=== PATIENT | male | born 1995 ===

== ENCOUNTER 2022-03-15 19:51 | Emergency (ER) | payer OTHER, SELFPAY ==
--- NOTE | ~2022-03-15 | XR_ITS ---
EXAMINATION: XR CHEST CLINICAL INFORMATION: Cough COMPARISON: None TECHNIQUE: Frontal view of the chest was obtained. FINDINGS: No significant abnormality is noted involving the heart, lungs, mediastinum, bony thorax or soft tissues. XR/XR chest 1V IMPRESSION: Unremarkable examination.
[2022-03-15 21:17] VITALS: BP 139/80; PULSE 89; RESP 20; TEMP 38.1; O2SAT 95; BMI 30.5
[2022-03-15] MEDS: Acetaminophen 325 MG TABLET 650 MG PO (21:20)
--- NOTE | 2022-03-15 21:26 | ED.URI ---
HPI - URI/Sore Throat General Chief Complaint: Upper Respiratory Symptoms Stated Complaint: Tested Pos Covid Time Seen by Provider: 03/15/22 21:22 Source: patient Mode of arrival: ambulatory Limitations: no limitations History of Present Illness HPI Narrative: Kimberly segura 2, MD elicited complaint: cough, sore throat and rhinorrhea Onset (ago): day(s) (yesterday ) Consistency: constant Severity: mild Able to tolerate fluids by mouth: Yes Exacerbating factors: nothing Relieving factors: nothing Context: other (two positive COVID tests at home - came here to be sure) Associated symptoms: fever, chills, myalgias, headache, rhinorrhea and sore throat Treatments prior to arrival: none Related Data Allergies Allergy/AdvReac Type Severity Reaction Status Date / Time SEASONAL ALLERGIES Allergy Unknown RUNNY Uncoded 03/15/22 21:16 NOSE,WATERY EYES Review of Systems Review of Systems: Constitutional : positive Fever, positive Chills, positive fatigue, positive Malaise ENT/Mouth : positive sore throat, positive runny nose Eyes: No Discharge Cardiovascular : No Chest Pain, No SOB Respiratory : pos Cough, No Sputum Gastrointestinal : No Nausea, No Vomiting, No Diarrhea Genitourinary : No Dysuria, No Urinary Frequency Musculoskeletal : positive Myalgia Skin : No rash Neuro : No Headache PMFSH Past Medical History Attestation statement: The following information was validated with the patient. Medical History No pertinent past medical history Social History Social History (Updated 03/15/22 @ 21:40 by Daija Darling DO) Patient Tobacco Use Status: Never used Tobacco Substance Use Type: Marijuana Advance Directives: No Advance Directives Information Provided: No Physical Exam Vital Signs: Vital Signs: Last Vital Signs Temp 100.6 F H 03/15/22 21:17 Pulse 89 03/15/22 21:17 Resp 20 03/15/22 21:17 BP 139/80 03/15/22 21:17 Pulse Ox 95 03/15/22 21:17 O2 Del Method 03/15/22 21:17 BMI result Body Mass Index 30.5 Appearance: Alert. Oriented X3. No acute distress. Appears under the influence strong odor of THC Eyes: Pupils equal, round and reactive to light. ENT: Pharynx normal. Neck: Normal inspection. Neck supple. CVS: Normal heart rate and rhythm. Pulses normal. Respiratory: No respiratory distress. Breath sounds normal. Abdomen: Soft and nontender. Skin: Skin warm and dry. Normal skin color. Normal skin turgor. Extremities: No lower extremity edema. No calf ttp Neuro: Oriented X 3. No motor deficit. No sensory deficit. MDM - URI/Sore Throat MDM Narrative Medical decision making narrative: 26 yo male vaccinated x 2 with Moderna here with + COVID tests x 2 at home - mild symptoms, no resp distress, has no qualifying condition - does not want Paxlovid after discussing EAU form. Will obtain swab, give tylenol. CXR. Dispo per results and findings. Anticipate DC home with precautions Lab Data Labs: Lab Results 03/15/22 Range/Units 21:56 COVID-19 (KATYA) Positive A (Negative) COVID-19 Clin Com See Note Discharge Plan Discharge Clinical Impression: COVID-19 Patient Disposition: Home, Self-Care Instructions: COVID-19 (Coronavirus Disease 2019) (ED) Additional Instructions: return to ED for any worsening symptoms or concerns WEAR A MASK, QUARANTINE, PROTECT OTHERS return if you become so short of breath you cannot walk to your bathroom tylenol and motrin for fevers stay hydrated CHEST XRAY OF YOUR LUNGS IS CLEAR NO PNEUMONIA Stand Alone Forms: Work/School Release
[2022-03-15 22:12] LABS: COVID-19 Test Positive (Negative)
== END 2022-03-15 22:35 | disposition home or self-care (01) ==
PROVIDERS: Emergency Provider Emergency Medicine
DX: U07.1 COVID-19 (principal); F12.90 Cannabis use, unspecified, uncomplicated
CPT/HCPCS: 71045; 87635; 99282; 99283

== ENCOUNTER 2022-03-18 03:44 | Emergency (ER) | payer OTHER, SELFPAY ==
[2022-03-18 04:21] VITALS: BP 145/81; PULSE 58; RESP 16; TEMP 36.9; O2SAT 97; BMI 30.5
== END 2022-03-18 06:12 | disposition left against medical advice (07) ==
PROVIDERS: Emergency Provider Emergency Medicine
DX: H92.02 Otalgia, left ear (principal)
CPT/HCPCS: 99281

== ENCOUNTER → 2022-07-31 08:51 | Outpatient (BNVA) | payer MEDICAID, SELFPAY | PROVIDERS: PCP Registered Nurse; Referring Provider Registered Nurse; Visit Provider Surgery | DX: R10.31 Right lower quadrant pain (principal) | CPT/HCPCS: 99202 ==

== ENCOUNTER 2022-08-09 16:39 | Outpatient (REF) | payer MEDICAID, SELFPAY ==
--- NOTE | ~2022-08-09 | CT_ITS ---
EXAMINATION: CT PELVIS WITHOUT CONTRAST CLINICAL INFORMATION: Right lower quadrant pain. COMPARISON: None. TECHNIQUE: Helical scanning was performed with submillimeter collimation through the pelvis. Sagittal and coronal multiplanar 2-D reconstructions were obtained. This CT examination was performed using dose optimization techniques as appropriate, variously including the following: *Automated exposure control *Adjustment of mA and/or kV according to patient size (this includes techniques or standardized protocols for targeted exams where dose is matched to indication/reason for exam; i.e. extremities or head) *Use of iterative reconstruction technique DLP: 527 mGy-cm. FINDINGS: PELVIS: There is scattered stool in the ascending colon and cecum region with normal-appearing appendix. The terminal ileum is nondilated. No inflammatory process seen in the right lower quadrant. There is no free air or free fluid. The bladder is nondistended. OSSEOUS STRUCTURES: No aggressive lytic or sclerotic process seen. CT/CT pelvis wo IV con IMPRESSION: 1. No acute process seen. 2. Mild constipation. Normal appendix.
== END 2022-08-09 16:40 | disposition home or self-care (01) ==
LOC: HO.CT 16:39
PROVIDERS: PCP Registered Nurse; Visit Provider Surgery
DX: R10.31 Right lower quadrant pain (principal)
CPT/HCPCS: 72192

== ENCOUNTER → 2022-08-15 11:20 | Outpatient (BNVA) | payer MEDICAID, SELFPAY | PROVIDERS: PCP Registered Nurse; Referring Provider Registered Nurse; Visit Provider Surgery | DX: R10.31 Right lower quadrant pain (principal) | CPT/HCPCS: 99212 ==

== ENCOUNTER → 2022-11-06 09:43 | Outpatient (BNVA) | payer MEDICAID, SELFPAY | PROVIDERS: PCP Registered Nurse; Visit Provider Surgery | DX: R10.31 Right lower quadrant pain (principal) | CPT/HCPCS: 99202 ==

== ENCOUNTER 2022-12-23 09:15 | Emergency (ER) | payer MEDICAID, SELFPAY ==
[2022-12-23 09:18] VITALS: BP 139/81; PULSE 71; RESP 19; TEMP 36.6; O2SAT 99; BMI 28.7
--- NOTE | 2022-12-23 10:17 | ED_ITS ---
HPI - General Adult General Chief complaint: General Medical Stated complaint: Sore throat/Swollen tonsils? Time Seen by Provider: 12/23/22 10:17 Source: patient Mode of arrival: ambulatory Limitations: no limitations History of Present Illness HPI narrative: Patient is a 27 year old assigned male at with no reported medical history presenting to the emergency department today with a sore throat. Patient states that he has had a sore throat for 4 days, went to an urgent care yesterday where they tested him for strep and mono (both negative) and started him on antibiotics. Patient states that he's concerned because there are white spots in his throat. Patient denies any dizziness, lightheadedness, abdominal pain, nausea, vomiting, fever, chills, blurry vision, double vision, loss of vision, chest pain, difficulty breathing, shortness of breath, back pain, night sweats, pain with urination, increased urinary frequency, increased urinary urgency, blood in his urine or stool, syncope or a near syncopal episode, recent trauma or falls, bowel incontinence, bladder incontinence, bowel retention, bladder retention, or any other complaints at this time. Onset (ago): day(s) (4) Severity: mild Relieving factors: none Exacerbating factors: none Associated symptoms: denies other symptoms Treatments prior to arrival: other (oral antibiotics) Related Data Home Medications Medication Instructions Recorded Confirmed No Known Home Meds 08/15/22 08/15/22 Allergies Allergy/AdvReac Type Severity Reaction Status Date / Time SEASONAL ALLERGIES Allergy Unknown RUNNY Uncoded 12/23/22 09:18 NOSE,WATERY EYES Review of Systems Constitutional: Constitutional: Reports no additional constitutional complaints, Denies chills, Denies fever(s) and Denies night sweats Eyes: Eyes: Reports no additional eye complaints, Denies blurry vision, Denies change in vision, Denies diplopia, Denies eye discharge, Denies loss of vision and Denies eye pain ENT: Denies dizziness and Reports sore throat Comments: white spots in throat Cardiovascular: Cardiovascular: Reports no additional cardiovascular complaints, Denies chest pain, Denies lightheadedness, Denies Loss of Consciousness and Denies dyspnea Respiratory: Respiratory: Reports no additional respiratory complaints and Denies dyspnea Gastrointestinal: Gastrointestinal: Reports no additional gastrointestinal complaints, Denies abdominal pain, Denies melena, Denies hematochezia, Denies change in bowel habits and Denies change in stool character Genitourinary: Genitourinary: Reports no additional male genitourinary complaints, Denies hematuria, Denies oliguria, Denies difficulty urinating, Denies dysuria, Denies urinary frequency, Denies urinary hesitancy, Denies urinary incontinence and Denies urinary urgency Musculoskeletal: Musculoskeletal: Reports no additional musculoskeletal complaints, Denies numbness and Denies tingling Neurologic: Denies dizziness, Denies loss of vision, Denies numbness and Denies tingling Psychiatric: Psychiatric: Reports no additional psychiatric complaints Endocrine: Endocrine: Reports no additional endocrine complaints Hematologic/Lymphatic: Hematologic/Lymphatic: Reports no additional hematologic/lymphatic complaints Allergic/Immunologic: Allergic/Immunologic: Reports no additional allergic/immunologic complaints PMFSH Past Medical History Attestation statement: The following information was validated with the patient. Source: old records reviewed and nursing notes reviewed Medical History No pertinent past medical history Family History Family History Mother Brain cancer Father No problems noted. Social History Social History Household Members: None Housing: Apartment Alcohol intake: current Alcohol intake frequency: holidays/special occasions only Patient Tobacco Use Status: Current someday Tobacco user Tobacco use type: Cigarette Cigarette Packs Per Day: 1 Advance Directives: No Advance Directives Information Provided: No Physical Exam ED Vital Signs: Vital Signs - 24 hr 12/23/22 09:18 Temperature 98 F Pulse Rate 71 Respiratory Rate 19 Blood Pressure 139/81 Pulse Oximetry 99 Oxygen Delivery Method Room Air BMI result Body Mass Index 28.7 Const General: cooperative, no acute distress, alert and awake Nutritional Appearance: well nourished Orientation/consciousness: patient oriented x3 Limitations: no limitations HENMT Head: Yes normal to inspection and Yes atraumatic Ears: hearing grossly normal bilaterally and external ears normal General nose exam: Normal external nose present, no nasal discharge noted and no epistaxis Face and sinus: Yes normal facial exam, No abrasion and No laceration Mouth: Normal oral and palatal mucosa present, no drooling and no muffled voice Throat: Yes posterior oropharynx abnormal (erythema and exudates) Eyes General: appearance normal, both eyes and all related structures Periorbital: periorbital findings normal Eyelids: Yes eyelids normal Conjunctivae: conjunctivae normal Pupils: Equal, round and reactive pupils present EOM: EOMs intact bilaterally Neck Neck: Yes normal visual inspection, Yes full ROM and Yes no lymphadenopathy Chest Chest palpation & inspection: normal inspection of the chest Resp Effort & Inspection: normal respiratory effort and able to speak in complete sentences GI Inspection: Yes normal to inspection Neuro General: patient oriented x3 and moves all extremities Cranial nerves: Yes Equal, round and reactive pupils present Cognition (Neuro): normal cognition Motor exam (neuro): 5/5 motor strength present throughout Sensory Exam: Normal double simultaneous stimulation for sensation Coordination: [id number] test normal Extrem General: Yes normal to inspection, Yes full ROM and Yes capillary refill normal Psych Appearance: grossly normal Mental Status: mental status grossly normal Affect: normal affect Attitude: cooperative Thought process: Normal thought process present Thought content: Normal thought content present Insight: Good insight present (Psych) Medications Administered Discontinued Medications Generic Name Dose Route Start Last Admin Trade Name Emely PRN Reason Stop Dose Admin Dexamethasone Sodium Phosphate 10 mg 12/23/22 10:24 12/23/22 11:05 Dexamethasone Sod Phosphate 10 Mg/Ml Vial PO 12/23/22 10:25 Not Given ONCE ONE Medical Decision Making Medical Decision Making [facility] Narrative: Patient is a 27 year old assigned male at with no reported medical history presenting to the emergency department today with white spots in his throat. Patient's physical exam showed posterior pharynx erythema and exudates. I explained my physical exam findings to the patient. I answered all questions asked by the patient. I stressed the importance of the patient taking his medication as prescribed, including his antibiotics. I stressed the importance of the patient following up with his primary care provider. I stressed the importance of the patient returning to the emergency department immediately if his symptoms were to worsen or if he were to develop any dizziness, shortness of breath, difficulty breathing, chest pain, blurry vision, loss of vision, nausea, vomiting, abdominal pain, fever, chills, back pain, or any other complaints. Patient verbalized agreement and understanding with this treatment plan and discharge. Differential Diagnosis Differential Diagnoses: The differential diagnosis associated with the presentation includes pharyngitis Discharge Plan Discharge Clinical Impression: Pharyngitis Patient Disposition: Home, Self-Care Instructions: Pharyngitis (ED) Additional Instructions: Keep taking the antibiotics previously prescribed. Follow up with your primary care provider. Return to the emergency department immediately if your symptoms worsen or if you develop any dizziness, shortness of breath, difficulty breathing, chest pain, blurry vision, loss of vision, nausea, vomiting, abdominal pain, fever, chills, back pain, or any other complaints. Prescriptions: No Action No Known Home Meds Referrals: Demarco Salas NP [Primary Care Provider] - Interventions: ED Discharge Assessment Last Done: 12/23/22 11:05 Discharge Date/Time: 12/23/22 11:05 Print Language: Maldivian
== END 2022-12-23 11:05 | disposition home or self-care (01) ==
PROVIDERS: Emergency Provider Emergency Medicine; PCP Registered Nurse
DX: J02.8 Acute pharyngitis due to other specified organisms (principal)
CPT/HCPCS: 99282

== ENCOUNTER 2023-09-12 16:46 | Emergency (ER) | payer MEDICAID, SELFPAY ==
[2023-09-12 17:00] VITALS: BMI 24.4
--- NOTE | 2023-09-12 17:02 | PC.NURSE ---
changed over by security, belongings locked in POD
--- NOTE | 2023-09-12 17:10 | PC.NURSE ---
Seen by provider who stated patient was alert and oriented and able to leave if he wanted. Patient stating he was leaving, gait steady walked into waiting room to exit facility
--- NOTE | 2023-09-12 17:16 | ED.GENADULT ---
HPI - General Adult General Chief complaint: ETOH/Substance Use Stated complaint: ETOH, SYNCOPE, UNCOOPERATIVE Time Seen by Provider: 09/12/23 17:00 Source: patient and RN notes reviewed Mode of arrival: EMS Limitations: other (alcohol intoxication) History of Present Illness HPI narrative: 28-year-old male presents for evaluation of alcohol abuse. Per EMS, the patient was sleeping in a pizza shop and therefore EMS was called The patient admits to alcohol use today He admits to previous use of other substances including PCP but states that was a 1 time thing and not today Initially the patient states that he is looking for help He is not suicidal He is alert and oriented to person place and time He was upset that he was asked to change into hospital attire I had a lengthy discussion the patient and initially convinced him if he is looking for help he would have to change into hospital gown so we can get him evaluated and offer potential detox resources Related Data Home Medications Medication Instructions Recorded Confirmed No Known Home Meds 08/15/22 08/15/22 Allergies Allergy/AdvReac Type Severity Reaction Status Date / Time SEASONAL ALLERGIES Allergy Unknown RUNNY Uncoded 12/23/22 09:18 NOSE,WATERY EYES Review of Systems Psychiatric: Psychiatric: Denies homicidal ideation and Denies suicidal ideation PMFSH Past Medical History Onset Date is defined in the Problem List Problems that require an onset date and time if occurred within 24 hrs of arrival to the ED Aortic Dissection and Rupture; Neurologic impairment; Cardiopulmonary Arrest; Endotracheal Intubation; Insertion or Replacement of Mechanical Circulatory Assist Device Medical History No pertinent past medical history Family History Family History Mother Brain cancer Father No problems noted. Social History Social History Household Members: None Housing: Apartment Alcohol intake: current Alcohol intake frequency: holidays/special occasions only Patient Tobacco Use Status: Current someday Tobacco user Tobacco use type: Cigarette Cigarette Packs Per Day: 1 Physical Exam ED Vital Signs: BMI result Body Mass Index 24.4 Const General: healthy appearing, comfortable, no acute distress, alert and awake Nutritional Appearance: well nourished Orientation/consciousness: patient oriented x3 HENMT Head: Yes normocephalic and Yes atraumatic Eyes Eyelids: Yes eyelids normal Conjunctivae: conjunctivae normal Sclerae: sclerae normal Corneas: corneas normal Pupils: Equal, round and reactive pupils present EOM: EOMs intact bilaterally Neck Neck: Yes full ROM Resp Effort & Inspection: normal respiratory effort, able to speak in complete sentences and not labored Skin General skin exam: elasticity normal Neuro General: patient oriented x3 Cranial nerves: Yes Equal, round and reactive pupils present and Yes Bilaterally intact EOM present Cognition (Neuro): normal cognition Extrem Other: Moving all extremities well without any obvious deformities Medical Decision Making Medical Decision Making MDM Narrative: 28-year-old male presents to the ER, he is uncooperative but not violent on arrival. He does not want to change into the [facility]. I was asked by staff to evaluate the patient. He prove that he was awake oriented. He was answering all my questions appropriately. He admits that he needs help and initially agreed to change the [facility] to get the help that he needs for detox and any other evaluation and management possible. Unfortunately I was made aware by staff that a few minutes after he agreed to change for his evaluation, he eloped from the ER. During my evaluation, I have deemed the patient to be alert and oriented, he has capacity to make his own decisions. He has not suicidal or a danger to himself or others and therefore was not placed on a section. The patient ultimately made the decision to leave the emergency department Differential Diagnosis Differential Diagnoses: The differential diagnosis associated with the presentation includes Alcohol abuse Substance abuse Schizophrenia Mood disorder Paranoia Discharge Plan Discharge Clinical Impression: Acute alcohol intoxication Patient Disposition: Home, Self-Care Instructions: Abuse of Alcohol (ED) Additional Instructions: You are leaving prior to complete history, physical and evaluation. You declined to be evaluated for potential detox resources Return to the ER immediately if you change your mind or if any other concerns Prescriptions: No Action No Known Home Meds
== END 2023-09-13 02:09 | disposition home or self-care (01) ==
LOC: HO.ED 19:03
PROVIDERS: Emergency Provider Emergency Medicine Emergency Medical Services
DX: F10.120 Alcohol abuse with intoxication, uncomplicated (principal); Y90.9 Presence of alcohol in blood, level not specified
CPT/HCPCS: 99282

== ENCOUNTER 2023-09-19 11:17 | Emergency (ER) | payer MEDICAID, SELFPAY ==
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
[2023-09-19 11:49] VITALS: BP 119/60; PULSE 82; RESP 16; TEMP 36.5; O2SAT 97; BMI 29.5
[2023-09-19 12:14] LABS: MANUAL DIFF FLAG NO
[2023-09-19 12:19] LABS: Basophils Absolute Auto 0.1 X10*3/uL (0.0-0.2); Eosinophils Absolute Auto 0.3 X10*3/uL (0.0-0.4); Eosinophils Percent Auto 3.8 % (0-4); Hematocrit 46.6 % (42.0-52.0); Hemoglobin 15.4 g/dl (14.0-18.0); Imm Gran Abs Auto 0.04 X10*3/uL (0.00-0.03); Imm Gran Pct Auto 0.5 % (0.0-0.4); Lymphocytes Percent Auto 34.4 % (20-40); Mean Corpuscular Hemoglobin 28.4 pg (27.0-33.0); Mean Corpuscular Volume 85.8 fL (80.0-98.0); Mean Platelet Volume 9.4 fL (9.4-12.4); Monocytes Absolute Auto 0.6 X10*3/uL (0.1-1.2); Monocytes Percent Auto 6.5 % (2-11); Neutrophils Absolute Auto 4.7 x10*3/uL (2.0-8.3); Neutrophils Percent Auto 53.8 % (45-73); Platelet Count 235 X10*3/uL (160-400); Red Blood Count 5.43 X10*6/uL (4.60-5.80); White Blood Count 8.7 X10*3/uL (4.8-10.8)
[2023-09-19 12:33] LABS: Alanine Aminotransferase 32 U/L (0-40); Alkaline Phosphatase 34 U/L (39-117); Anion Gap 12 (12-20); Aspartate Amino Transferase 37 U/L (5-37); Bilirubin Total 0.2 mg/dL (0.0-1.0); Blood Urea Nitrogen 7 mg/dL (9-16); Calcium 9.1 mg/dL (8.4-10.2); Carbon Dioxide 25 mmol/L (22-29); Chloride 109 mmol/L (96-108); Creatinine Clr Calc Pharmacy 135.2; Estimated Glomerular Filt Rate > 60; Glucose Random 89 mg/dL (60-115); Potassium 4.9 mmol/L (3.3-5.1); Sodium 141 mmol/L (135-145); Total Protein 6.5 g/dL (6.5-8.0)
[2023-09-19] MEDS: 0.9 % Sodium Chloride 1,000 ML 999 ML IV (15:34)
[2023-09-19 17:09] VITALS: BP 135/68; PULSE 76; RESP 18; TEMP 36.8; O2SAT 99
== END 2023-09-19 18:53 | disposition home or self-care (01) ==
PROVIDERS: Nurse Practitioner Family; Emergency Provider Emergency Medicine; PCP Registered Nurse
DX: S31.000A Unspecified open wound of lower back and pelvis without penetration into retroperitoneum, initial encounter (principal); X95.9XXA Assault by unspecified firearm discharge, initial encounter; Y93.9 Activity, unspecified; Y92.9 Unspecified place or not applicable; Y99.9 Unspecified external cause status
CPT/HCPCS: 36415; 74177; 80053; 85025; 96360; 96361; 99284